=== PATIENT | female | born 2000 | race Caucasian/White ===

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

== ENCOUNTER 2021-07-21 14:53 | Emergency (ER) | payer MEDICAID ==
[~2021-07-21] VITALS: Ht 165.1 cm; Wt 97.7 kg
[2021-07-21 15:21] VITALS: BP 109/74
[2021-07-21] MEDS ORDERED: ALBU18HF2 INH (16:41)
== END 2021-07-21 16:57 | disposition home or self-care (01) ==
LOC: ER 14:53
DX: U07.1 COVID-19 (principal); J02.9 Acute pharyngitis, unspecified; R11.2 Nausea with vomiting, unspecified; R50.9 Fever, unspecified; R51.9 Headache, unspecified; Z79.899 Other long term (current) drug therapy
CPT/HCPCS: 71045; 99282; 99283